=== PATIENT | female | born 1960 | race Caucasian/White ===

== ENCOUNTER 2019-02-04 13:47 | Emergency (ER) | payer OTHER ==
--- NOTE | 2019-02-04 14:04 | Emergency Department Record ---
History of Present Illness - General Chief complaint: Heat Cramps/exhaustion/stroke Stated complaint: BLURRY VISION,DIZY,HAND TINGLING,LT DROOPING FACE Time Seen by Provider: 02/04/19 13:58 Source: Patient, Family Mode of Arrival: Ambulatory Limitations: No limitations - History of Present Illness Initial comments: 58 yo female presents with varied symptoms over the last three weeks. Three weeks ago she states she had some brief memory issues while completing her prayers. This lasted that evening but has not returned. On she had a tooth pulled on the right. She states the right sided of the face remains numb. She has had numbness and tingling of her hands bilaterally. Starting yesterday morning she has had double vision with reading words on the computer. Additionally her daughter noted a slight asymmetry to the left eye vs the right. No speech changes, no dysarthria, no ataxia with the hands/arms. At times she feels off balance. No headaches. No chest pain. -: Days(s) Location: Generalized Severity: Moderate Quality: Other Consistency: Constant, Intermittent Improves with: None Worsens with: None Context: Other Associated Symptoms: Denies other symptoms - [place] Coma Scale Eye Response: (4) Open spontaneously Motor Response: (6) Obeys commands Verbal Response: (5) Oriented Emily Total: 15 - Related Data Home Medications Medication Instructions Recorded Confirmed Last Taken Levothyroxine Sodium 75 mcg PO DAILY 02/04/19 02/04/19 Unknown Multivit with Calcium,Iron,Min 1 each PO DAILY 02/04/19 02/04/19 Unknown [Multiple Vitamins For Women] Vitamin E 100 unit PO DAILY 02/04/19 02/04/19 Unknown Allergies Allergy/AdvReac Type Severity Reaction Status Date / Time No Known Drug Allergies Allergy Verified 02/04/19 14:05 Review of Systems Constitutional: Denies: Chills, Fever, Malaise, Weakness Eyes: Denies: Eye discharge, Eye pain, Photophobia, Vision change ENT: Denies: Congestion, Throat pain Respiratory: Denies: Cough, Dyspnea, Hemoptysis, Wheezes Cardiovascular: Denies: Chest pain, Palpitations, Syncope Endocrine: Denies: Fatigue, Polydipsia, Polyuria Gastrointestinal: Denies: Abdominal pain, Diarrhea, Nausea, Vomiting Genitourinary: Denies: Dysuria, Urgency Musculoskeletal: Denies: Arthralgia, Back pain, Joint swelling, Myalgia Skin: Denies: Bruising, Change in color, Rash Neurological: Reports: Abnormal gait (at times feels off with walking), Numbness (right facial), Tingling (both hands). Denies: Confusion, Headache, Tremors, Vertigo, Weakness Psychiatric: Denies: Anxiety Hematological/Lymphatic: Denies: Easy bleeding, Easy bruising Physical Exam - General General Appearance: Alert, Oriented x3, Cooperative, No acute distress Limitations: No limitations - Head Head exam: Atraumatic, Normocephalic, Normal inspection - Eye Eye exam: Normal appearance, PERRL, EOMI. negative: Conjunctival injection, Nystagmus, Periorbital swelling, Periorbital tenderness, Scleral icterus Pupils: Normal accommodation. negative: Irregular, Unequal - ENT ENT exam: Normal exam, Mucous membranes moist, Normal orophraynx Ear exam: Normal external inspection Nasal Exam: Normal inspection Mouth exam: Normal external inspection Teeth exam: Normal inspection Throat exam: Normal inspection - Neck Neck exam: Normal inspection - Respiratory Respiratory exam: Normal lung sounds bilaterally. negative: Respiratory distress - Cardiovascular Cardiovascular Exam: Regular rate, Normal rhythm, Normal heart sounds - GI/Abdominal GI/Abdominal exam: Soft. negative: Tenderness - Rectal Rectal exam: Deferred - exam: Deferred - Extremities Extremities exam: Normal inspection. negative: Tenderness - Back Back exam: Reports: Full ROM - Neurological Neurological exam: Alert, Normal gait, Oriented X3, Reflexes normal. negative: Abnormal gait - Psychiatric Psychiatric exam: Normal affect, Normal mood. negative: Agitated, Anxious - Skin Skin exam: Dry, Intact, Normal color, Warm Course - Reevaluation(s) Reevaluation #1: 02/04/19 14:12 EKG #1: 14:00 Rate: 63 Rhythm: sinus [place]: normal Intervals: normal ST segments: normal 02/04/19 15:[address] was discussed with Dr Rodriguez There is a 1.6cm left thalamic hyperdensity that may represent a hemorrhagic inf arct, a vascular structure such as hemangioma can not be ruled out. Small amount of local edema noted as well. 02/04/19 15:18 CBC, CMP and PT are normal [facility] contacted 02/04/19 15:39 The Case was discussed with NS at [facility] Dr Strauss and Dr Tran of the ED accepts the patient for ED to ED Medical Decision Making - Lab Data Result diagrams: 02/04/19 13:57 02/04/19 13:57 Disposition Disposition: Transfer Clinical Impression: Hemorrhagic stroke Disposition: Home, Self-Care Transfer To: [facility] ED Reason For Transfer: Hemorrhage Stroke Accepting Physician: Chelsea Time Discussed w/Accepting Physician: 15:40 Condition: (3) Guarded Forms: Patient Portal Access Time of Disposition: 15:40 Quality - Quality Measures Quality Measures: N/A - Blood Pressure Screening Does Patient Have Any of the Following: No Blood Pressure Classification: Hypertensive Reading Systolic Measurement: 124 Diastolic Measurement: 96 Screening for High Blood Pressure: < Pre-Hypertensive BP, F/U Documented > [G8950] Pre-Hypertensive Follow-up Interventions: Referral to alternative/primary care provider.
[2019-02-04 14:23] LABS: ABSOLUTE NEUTROPHIL COUNT 5.22; BASO % 0.7 % (0-6); EOS % 5.3 % (0-6); GRAN % 71.3 % (47-80); HEMATOCRIT 38.4 % (35.0-47.0); HEMOGLOBIN 12.2 gm/dl (11.6-16.0); LYMPH % 16.7 % (16-45); MEAN CELL VOLUME 89.5 fl (81-97); MEAN CORPUSCULAR HEMOGLOBIN 28.4 pg (27-33); MEAN CORPUSCULAR HGB CONC 31.8 g/dl (32-36); MEAN PLATELET VOLUME 9.8 fl (7.4-10.4); PLATELET COUNT 362 K/uL (130-400); RED BLOOD COUNT 4.29 M/uL (3.80-5.40); RED CELL DISTRIBUTION WIDTH 14.2 % (11.5-14.5); WHITE BLOOD COUNT W/O DIFF 7.3 K/uL (4.2-12.2)
[2019-02-04 14:33] LABS: BLOOD UREA NITROGEN 11 mg/dL (6-20); CREATININE 0.5 mg/dL (0.5-0.9); EST GLOMERULAR FILTRATION RATE > 60 mL/min
[2019-02-04 14:34] LABS: TOTAL PROTEIN 7.2 g/dL (6.6-8.7)
[2019-02-04 14:36] LABS: GLUCOSE,RANDOM 114 mg/dL (74-109)
[2019-02-04 14:39] LABS: ALB/GLOB RATIO 1.3 (1.1-1.8); ALKALINE PHOSPHATASE 94 U/L (35-104); ALT/SGPT 13 U/L (<33); AST/SGOT 16 U/L (10.0-35.0)
[2019-02-04 15:01] LABS: PARTIAL THROMBOPLASTIN TIME 28.6 SECONDS (24.5-39.1); PROTHROMBIN TIME (PATIENT) 10.3 SECONDS (9.5-12.1)
[2019-02-04] MEDS: POTASSIUM CHLORIDE 20 MEQ TABLET PO ONE (15:20)
[2019-02-04 21:09] LABS: THYROID STIMULATING HORMONE 2.73 uIU/mL (0.270-4.20)
--- NOTE | 2019-02-05 07:53 | CT SCAN REPORT ---
EXAM: CT OF THE BRAIN WITHOUT CONTRAST HISTORY: VISUAL CHANGES. OFF BALANCE. TECHNIQUE: Routine noncontrast CT of the brain was obtained. Comparison: None. FINDINGS: There is a hyperdense mass like area near the inferomedial margin of the left thalamus at its junction with the mid brain. This measures 1.5 x 1.4 x 1.6 cm. It has a small tail like extension near its anterior margin. Additionally there is hypodensity within the more superior aspect of the left thalamus. There is slight mass effect on the posterior aspect of the third ventricle. No other area of abnormally increased or decreased attenuation is noted throughout the brain substance. No evidence of large extraaxial fluid collection. No acute osseous abnormality. The visualized paranasal sinuses and mastoid air cells are clear with the exception of minor retention cyst formation within the floors of the maxillary sinuses. The orbits as visualized are unremarkable. IMPRESSION: HYPERDENSE MASS AT THE JUNCTION OF THE LEFT THALAMUS AND MID BRAIN WITH ADJACENT HYPERDENSITY WITHIN THE LEFT THALAMUS. DIAGNOSTIC CONSIDERATIONS INCLUDE HYPERDENSE NEOPLASM WITH SURROUNDING EDEMA VERSUS HEMORRHAGIC INFARCT. THIS DOES CAUSE SLIGHT DEFORMITY OF THE POSTERIOR ASPECT OF THE THIRD VENTRICLE. NO OTHER ABNORMALITY IDENTIFIED. JOB NUMBER: [id number] [facility]
== END 2019-02-04 15:57 | disposition home or self-care (01) ==
LOC: ER 13:47
DX: I62.9 Nontraumatic intracranial hemorrhage, unspecified (principal); H53.8 Other visual disturbances; R29.810 Facial weakness
CPT/HCPCS: 70450; 80053; 84443; 85025; 85610; 85730; 93005; 93010; 99285